=== PATIENT | female | born 1980 | race Caucasian/White ===

== ENCOUNTER 2017-07-30 20:03 | Emergency (ER) | payer OTHER ==
[2017-07-30 20:09] VITALS: RESP 16; O2SAT 99
[2017-07-30] MEDS ORDERED: NS 1,000 ML IV ONE (20:33)
--- NOTE | 2017-07-30 20:37 | EDPHY ---
H & P Stated Complaint: intermittant lightheadedness Time Seen by Provider: 07/30/17 20:34 HPI/ROS: HPI: This is a 37-year-old female who presents with Chief Complaint: Lightheadedness Location: Head Quality: Dizziness Duration: 2 days Signs and Symptoms: No fever, no neck stiffness, no headache, no room spinning , no nasal congestion, no runny nose, + intermittent shortness of breath, no chest pain, no dysuria Timing: Sudden, intermittent, occurring every several hours, lasting for couple seconds Severity: Moderate Context: Patient presents with complaints of feeling lightheaded for the past 2 days, episodes occur every several hours, lasting for several seconds at a time. She denies any fever/chills/room spinning. She reports that she is under tremendous amount of stress at work sits at her desk for long periods of time. Nonsmoker. Has xavier IUD. No longer has regular menses. She has no prior history of vertigo. No recent long distance travel or changes in elevation. Denies any recent upper respiratory infection/nasal congestion. She reports when she goes from sitting to standing she actually feels better. Episodes occur while she is sitting at her desk at work. She wears glasses and denies any vision changes. Last eye exam was 1 year ago. She drank 4 glasses of water yesterday and feels like that may have made her symptoms better today. Denies any feelings of chest pain/palpitations. Modifying Factors: Drinking water Comment: ROS: see HPI Constitutional: No fever, no chills, no weight loss Eyes: No blurred vision Respiratory: No shortness of breath, no cough Cardiovascular: No chest pain Gastrointestinal: No nausea, no vomiting, no diarrhea Genitourinary: No dysuria Extremities: No myalgias Neurologic: No weakness, no numbness Skin: No rashes Hematologic: No bruising, no bleeding MEDICAL/SURGICAL/SOCIAL HISTORY: Medical history: Generally healthy. Does not take any regular medications. Surgical history: Social history: . Employed CONSTITUTIONAL: Pleasant well-appearing adult white female awake and alert, no obvious distress HEENT: Atraumatic and normocephalic, PERRL, EOMI. Wears glasses. Tympanic membranes clear. Oropharynx clear, no exudate and moist pink mucosa. Airway patent. No lymphadenopathy. No meningismus. Cardiovascular: Normal S1/S2, regular rate, regular rhythm, without murmur rub or gallop. PULMONARY/CHEST: Symmetrical and nontender. Clear to auscultation bilaterally. Good air movement. No accessory muscle usage. ABDOMEN: Soft, nondistended, nontender, no rebound, no guarding, no peritoneal signs, no masses or organomegaly. No CVAT. EXTREMITIES: 2/2 pulses, no deformities, no clubbing, no cyanosis or edema. NEUROLOGICAL: no focal neuro deficits. GCS 15. Normal cerebellar testing. Normal [id number]. Normal [id number]. Normal Romberg test. Cranial nerves 2-12 grossly intact SKIN: Warm and dry, no erythema. no rash. Good capillary refill. Source: Patient Exam Limitations: No limitations - Personal History LMP (Females 10-55): IUD In Place Current Tetanus/Diphtheria Vaccine: Yes Current Tetanus Diphtheria and Acellular Pertussis (TDAP): Yes - Medical/Surgical History Hx Asthma: No Hx Chronic Respiratory Disease: No Hx Diabetes: No Hx Cardiac Disease: No Hx Renal Disease: No Hx Cirrhosis: No Hx Alcoholism: No Hx HIV/AIDS: No Hx Splenectomy or Spleen Trauma: No Other PMH: - Social History Smoking Status: Never smoked Constitutional: Initial Vital Signs Temperature (C) 37.0 C 07/30/17 20:08 Heart Rate 78 07/30/17 20:08 Respiratory Rate 16 07/30/17 20:08 Blood Pressure 139/84 H 07/30/17 20:08 O2 Sat (%) 99 07/30/17 20:08 O2 Delivery Mode Room Air Allergies/Adverse Reactions: No Known Allergies Allergy (Verified 07/30/17 20:10) Home Medications: Medication Instructions Recorded NK [No Known Home Meds] 07/30/17 Medical Decision Making Procedures: 12 lead EKG: Indication: Dizziness Rhythm: Junctional rhythm, rate 65 beats per minute [place]: Normal Intervals: Normal QRS: Normal ST segments: Normal INTERPRETATION: No acute ischemic changes The 12 lead EKG was interpreted by myself and with attending. 12 lead EKG: Indication: Dizziness Rhythm: Normal sinus rhythm, rate 53 beats per minute [place]: Normal Intervals: Normal QRS: Normal ST segments: Normal INTERPRETATION: Normal EKG The 12 lead EKG was interpreted by myself and with attending ED Course/Re-evaluation: EKG, labs, orthostatics, IV fluids, urinalysis, oral medication ordered neg orthostats. pt prefers to wait to take meclizine until she gets home. Reviewed labs and completely unremarkable. Initial EKG shows junctional rhythm. Repeat EKG normal sinus rhythm Urinalysis shows no signs of infection. Reassessed patient she states that her dizziness has resolved. Differential Diagnosis: Dizziness including but not limited to peripheral and central causes of vertigo , orthostatic causes including dehydration, and blood loss. - Data Points Laboratory Results: Laboratory Results 07/30/17 20:30 07/30/17 20:30 07/30/17 07/30/17 07/30/17 21:42 20:30 20:30 WBC RBC Hgb Hct MCV MCH MCHC RDW Plt Count MPV Neut % (Auto) Lymph % (Auto) [place] % (Auto) Eos % (Auto) Baso % (Auto) Nucleat RBC Rel Count Absolute Neuts (auto) Absolute Lymphs (auto) Absolute Monos (auto) Absolute Eos (auto) Absolute Basos (auto) Absolute Nucleated RBC Immature Gran % Immature Gran # D-Dimer < 0.27 ug/mLFEU ug/mLFEU (0.00-0.50) Sodium Potassium Chloride Carbon Dioxide Anion Gap BUN Creatinine Estimated GFR Glucose Calcium TSH Beta HCG, Qual NEGATIVE Urine Color YELLOW Urine Appearance CLEAR Urine pH 6.0 (5.0-7.5) Ur Specific [place] 1.017 (1.002-1.030) Urine Protein NEGATIVE (NEGATIVE) Urine Ketones NEGATIVE (NEGATIVE) Urine Blood NEGATIVE (NEGATIVE) Urine Nitrate NEGATIVE (NEGATIVE) Urine Bilirubin NEGATIVE (NEGATIVE) Urine Urobilinogen NEGATIVE EU EU (0.2-1.0) Ur Leukocyte Esterase NEGATIVE (NEGATIVE) Urine Glucose NEGATIVE (NEGATIVE) 07/30/17 07/30/17 20:30 20:30 WBC 11.91 10^3/uL H 10^3/uL (3.80-9.50) RBC 4.48 10^6/uL 10^6/uL (4.18-5.33) Hgb 13.8 g/dL g/dL (12.6-16.3) Hct 38.8 % % (38.0-47.0) MCV 86.6 fL fL (81.5-99.8) MCH 30.8 pg pg (27.9-34.1) MCHC 35.6 g/dL g/dL (32.4-36.7) RDW 12.5 % % (11.5-15.2) Plt Count 247 10^3/uL 10^3/uL (150-400) MPV 9.8 fL fL (8.7-11.7) Neut % (Auto) 59.6 % % (39.3-74.2) Lymph % (Auto) 31.7 % % (15.0-45.0) [place] % (Auto) 6.4 % % (4.5-13.0) Eos % (Auto) 1.6 % % (0.6-7.6) Baso % (Auto) 0.3 % % (0.3-1.7) Nucleat RBC Rel Count 0.0 % % (0.0-0.2) Absolute Neuts (auto) 7.09 10^3/uL H 10^3/uL (1.70-6.50) Absolute Lymphs (auto) 3.78 10^3/uL H 10^3/uL (1.00-3.00) Absolute Monos (auto) 0.76 10^3/uL 10^3/uL (0.30-0.80) Absolute Eos (auto) 0.19 10^3/uL 10^3/uL (0.03-0.40) Absolute Basos (auto) 0.04 10^3/uL 10^3/uL (0.02-0.10) Absolute Nucleated RBC 0.00 10^3/uL 10^3/uL (0-0.01) Immature Gran % 0.4 % % (0.0-1.1) Immature Gran # 0.05 10^3/uL 10^3/uL (0.00-0.10) D-Dimer Sodium 138 mEq/L mEq/L (134-144) Potassium 4.0 mEq/L mEq/L (3.5-5.2) Chloride 102 mEq/L mEq/L (97-110) Carbon Dioxide 25 mEq/l mEq/l (22-31) Anion Gap 11 mEq/L mEq/L (8-16) BUN 15 mg/dL mg/dL (7-23) Creatinine 0.8 mg/dL mg/dL (0.6-1.0) Estimated GFR > 60 Glucose 78 mg/dL mg/dL (70-100) Calcium 9.6 mg/dL mg/dL (8.5-10.4) TSH 1.920 uIU/mL uIU/mL (0.465-4.680) Beta HCG, Qual Urine Color Urine Appearance Urine pH Ur Specific [place] Urine Protein Urine Ketones Urine Blood Urine Nitrate Urine Bilirubin Urine Urobilinogen Ur Leukocyte Esterase Urine Glucose Medications Given: Discontinued Medications Sodium Chloride (Ns) 1,000 mls @ 0 mls/hr IV EDNOW ONE; Wide Open PRN Reason: Protocol Stop: 07/30/17 20:34 Last Admin: 07/30/17 20:57 Dose: 1,000 mls Departure - Departure Disposition: Home, Routine, Self-Care Clinical Impression: Junctional rhythm, Dizziness Condition: Good Instructions: Dizziness (ED) Additional Instructions: Please drink plenty of fluids throughout the day to prevent dehydration. Follow up with Cardiology within the next 7-10 days. Referrals: Nas Waller MD [Medical Doctor] - As per Instructions
[2017-07-30 20:42] LABS: % IMMATURE GRANULYOCYTES 0.4 % (0.0-1.1); ABSOLUTE IMMATURE GRANULOCYTES 0.05 10^3/uL (0.00-0.10); ADD DIFF? NO; ADD MORPH? NO; ADD SCAN? NO; ATYPICAL LYMPHOCYTE FLAG 20 (0-99); FRAGMENT RBC FLAG 0 (0-99); HEMATOCRIT 38.8 % (38.0-47.0); HEMOGLOBIN 13.8 g/dL (12.6-16.3); LEFT SHIFT FLG 0 (0-99); LIPEMIA HEMOLYSIS FLAG 90 (0-99); MEAN CELL HEMOGLOBIN 30.8 pg (27.9-34.1); MEAN CELL HEMOGLOBIN CONCENTR. 35.6 g/dL (32.4-36.7); MEAN CELL VOLUME 86.6 fL (81.5-99.8); MEAN PLATELET VOLUME 9.8 fL (8.7-11.7); PLATELET CLUMPS FLAG 10 (0-99); PLATELET COUNT 247 10^3/uL (150-400); RED BLOOD CELL COUNT 4.48 10^6/uL (4.18-5.33); RED CELL DISTRIBUTION WIDTH 12.5 % (11.5-15.2)
--- NOTE | 2017-07-30 20:49 | CPEKG ---
Heart Rate: 65 RR Interval: 923 QRSD Interval: 90 QT Interval: 420 QTC Interval: 437 QRS [place]: 57 T Wave [place]: 12 EKG Severity - ABNORMAL ECG - EKG Impression: ACCELERATED JUNCTIONAL ESCAPE RHYTHM Electronically Signed By: Kesha Packer 30-Jul-2017 23:10:09
[2017-07-30 21:03] LABS: ANION GAP 11 mEq/L (8-16); CALCIUM 9.6 mg/dL (8.5-10.4); CARBON DIOXIDE 25 mEq/l (22-31); CHLORIDE 102 mEq/L (97-110); CREATININE 0.8 mg/dL (0.6-1.0); GLOMERULAR FILTRATION RATE > 60; GLUCOSE 78 mg/dL (70-100); SODIUM 138 mEq/L (134-144)
--- NOTE | 2017-07-30 22:07 | CPEKG ---
Heart Rate: 53 RR Interval: 1132 P-R Interval: 176 QRSD Interval: 90 QT Interval: 464 QTC Interval: 436 P [place]: 22 QRS [place]: 45 T Wave [place]: 16 EKG Severity - NORMAL ECG - EKG Impression: SINUS RHYTHM Electronically Signed By: Kesha Packer 30-Jul-2017 23:10:09
[2017-07-30 22:22] LABS: COLOR YELLOW; LEUKOCYTE ESTERASE,URINE NEGATIVE (NEGATIVE); NITRITE,URINE NEGATIVE (NEGATIVE)
[2017-07-30] MEDS ORDERED: MECLIZINE HCL 25 MG TAB PO ONE (22:30)
[2017-07-30 22:38] VITALS: BP 121/81; PULSE 56; TEMP 98.1
== END 2017-07-30 22:36 | disposition home or self-care (01) ==
PROC: 3E0337Z Introduction of Electrolytic and Water Balance Substance into Peripheral Vein, Percutaneous Approach (ICD-10-PCS; principal; 2017-07-30)
DX: R42 Dizziness and giddiness (principal); I49.8 Other specified cardiac arrhythmias; E86.9 Volume depletion, unspecified